=== PATIENT | male | born 1995 | race Caucasian/White ===

== ENCOUNTER 2021-02-19 09:08 | Emergency (ER) | payer SELFPAY ==
[2021-02-19 09:23] VITALS: BP 139/85; PULSE 98; RESP 16; TEMP 36.7; O2SAT 98; BMI 38.0
--- NOTE | 2021-02-19 09:46 | ED.BACK ---
HPI - Back Pain/Injury General Chief Complaint: Back Pain/Injury Stated Complaint: BACK PAIN INJ Time Seen by Provider: 02/19/21 09:34 Source: patient Mode of arrival: ambulatory Limitations: no limitations History of Present Illness HPI Narrative: 26 y/o male with no medical history presents with low back pain for the last 6 days. It started after he was squatting down working on his car for for a half hour. When he went to stand up he felt a spasm in his lower back and has been in pain ever since. He is most comfortable when he is standing up. Pain is worse when going from laying or sitting to standing. He denies any radiation of pain. No trauma. No numbness, tingling or weakness. No incontinence. MD elicited complaint: back injury Onset (ago): day(s) (6) Timing: constant Severity: moderate Similar Symptoms Previously: No Quality: aching and spasming Location: right lower back and left lower back Radiation: none Exacerbating factors: movement, sitting upright, deep breaths and coughing/sneezing Relieving factors: immobilization and sitting upright Context: other Associated symptoms: denies other symptoms Work related injury: No Related Data Previous Rx's Medication Instructions Recorded cyclobenzaprine 10 mg PO TID PRN #8 tab 02/19/21 ibuprofen 600 mg PO Q8H PRN #20 tab 02/19/21 lidocaine [Lidoderm] 1 patch TOPICAL DAILY #15 ea 02/19/21 Allergies Allergy/AdvReac Type Severity Reaction Status Date / Time No Known Allergies Allergy Unverified 08/02/20 17:32 [No Known Allergies*] Review of Systems Review of Systems: Constitutional: No Fever, No Chills Gastrointestinal: No abdominal Pain Genitourinary: No Dysuria, No Urinary Frequency, No Hematuria, No incontinence Musculoskeletal: No joint pain, + Myalgias Skin: No Skin Lesions, No rash Neuro: No Weakness, No Numbness Heme/Lymph: No Bruising PMFSH Past Medical History Attestation statement: The following information was validated with the patient. Medical History No known health problems Social History Social History Smoking Status: Current every day smoker Smoked in Last 30 Days: Yes Advance Directives: Yes Advance Directives Information Provided: Yes Advance Directives on File: No Physical Exam Vital Signs: Vital Signs: Last Vital Signs Temp 98.1 F 02/19/21 09:23 Pulse 98 02/19/21 09:23 Resp 16 02/19/21 09:23 BP 139/85 02/19/21 09:23 Pulse Ox 98 02/19/21 09:23 Body Mass Index 38.0 Appearance: Alert. Oriented X3. No acute distress. HEENT: normal inspection CVS: Normal heart rate and rhythm. Pulses normal. Respiratory: No respiratory distress. Skin: Skin warm and dry. Normal skin color. Normal skin turgor. No rashes. Back: soft tissue tenderness of middle right and left lumbar areas, limited flexion of spine due to pain. no spinal tenderness, no SI tenderness Extremities: atraumatic, no edema. Neuro: Oriented X 3. No motor deficit. No sensory deficit. Steady gait Course Course Course Narrative: 26 y/o male presenting with nontraumatic lower back pain. Clinical presentation consistent with muscle strain. No red flag symptoms of LBP. Will start NSAID, muscle relaxer and Lidoderm. Patient agreeable with plan. Encouraged to f/u with PCP or come back to the ER for worsening symptoms. MDM - Back Pain/Injury Differential Diagnosis Differential diagnosis: Likely lumbar radiculopathy, sciatica, strain of lumbar region, thoracic back pain and discitis Critical Care Time Critical Care Time Critical Care Time: No Discharge Plan Discharge Clinical Impression: Strain of lumbar region Qualifiers: Encounter type: initial encounter Qualified Code(s): S39.012A - Strain of muscle, fascia and tendon of lower back, initial encounter Patient Disposition: Home, Self-Care Instructions: Low Back Strain (ED), Acute Low Back Pain (ED), Lower Back Exercises (ED) Additional Instructions: No bending, lifting or twisting. Use ice several times per day for 20 minutes at a time for the next 48 hours and then change to heat. Take medications as prescribed to help with pain and discomfort. Follow up with your Primary Care Doctor this week. If your pain worsens, if you develop new numbness, tingling, weakness, loss of function or incontinence call 911 or come back to the ER right away for evaluation. Prescriptions: New cyclobenzaprine 10 mg tablet 10 mg PO TID PRN (Reason: muscle spasm) Qty: 8 RF: 0 lidocaine [Lidoderm] 5 % adhesive patch,medicated 1 patch topical DAILY Qty: 15 RF: 0 ibuprofen 600 mg tablet 600 mg PO Q8H PRN (Reason: pain) Qty: 20 RF: 0 Stand Alone Forms: Work/School Release
== END 2021-02-19 09:55 | disposition home or self-care (01) ==
PROVIDERS: Emergency Provider Emergency Medicine
DX: S39.012A Strain of muscle, fascia and tendon of lower back, initial encounter (principal); X50.1XXA Overexertion from prolonged static or awkward postures, initial encounter; F17.200 Nicotine dependence, unspecified, uncomplicated; Y93.89 Activity, other specified; Y92.015 Private garage of single-family (private) house as the place of occurrence of the external cause; Y99.9 Unspecified external cause status
CPT/HCPCS: 99283